=== PATIENT | female | born 1960 | race Native Hawaiian/Other Pacific Islander ===

== ENCOUNTER 2020-11-27 20:08 | Emergency (ER) | payer OTHER ==
[~2020-11-27] VITALS: Ht 165.1 cm; Wt 83.9 kg
[2020-11-27] MEDS ORDERED: ATENOLOL100 MG PO (20:23)
[2020-11-27 21:25] VITALS: BP 161/77; TEMP 98.3
== END 2020-11-27 21:25 | disposition home or self-care (01) ==
LOC: ED 20:16
DX: R31.9 Hematuria, unspecified (principal); W18.49XA Other slipping, tripping and stumbling without falling, initial encounter; Y92.89 Other specified places as the place of occurrence of the external cause
CPT/HCPCS: 81000; 96360; 96375; 99283; 99284; J1885